=== PATIENT | male | born 1990 | race Caucasian/White ===

== ENCOUNTER 2018-10-18 13:46 | Emergency (ER) | payer BC ==
[~2018-10-18] VITALS: Ht 172.7 cm; Wt 95.5 kg
[2018-10-18 14:21] VITALS: Ht 172.7 cm; Wt 95.5 kg
[2018-10-18] MEDS ORDERED: CANNIBUS OIL (14:24)
[2018-10-18 14:41] LABS: BASOPHILS 0.2 % (0-2); EOSINOPHILS 6.4 % (0-7); HEMATOCRIT 41.3 % (42.0-54.0); HEMOGLOBIN 13.9 g/dL (13.5-17.5); IMMATURE GRANULOCYTES 0.2 % (0-5); MCH 29.9 pg (26.0-34.0); MCHC 33.7 g/dL (31.0-37.0); MCV 88.8 fL (80.0-100.0); MEAN PLATELET VOLUME 9.7 fL (7.4-10.4); MONOCYTES 8.6 % (2-11); NEUTROPHILS 64.6 % (40-80); PLATELET COUNT 251 10x3/uL (130-400); RBC 4.65 10x6/uL (4.20-6.10); RDW 13.2 % (11.5-14.5); WBC 6.4 10x3/uL (4.8-10.8)
[2018-10-18 15:00] LABS: ALKALINE PHOSPHATASE 69 U/L (46-116); ALT (SGPT) 19 U/L (10-68); BILIRUBIN - TOTAL 0.34 mg/dL (0.2-1.3); CALC OSMOLALITY 276 mosm/kg (275-300); CARBON DIOXIDE 29.2 mmol/L (21.0-32.0); CHLORIDE - SERUM 103 mmol/L (98-107); CREATININE - SERUM 0.8 mg/dL (0.6-1.3); GLUCOSE 89 mg/dL (74-106); POTASSIUM - SERUM 4.3 mmol/L (3.5-5.1); PROTEIN - SERUM 7.7 g/dL (6.4-8.2); SODIUM 140 mmol/L (136-145); UREA NITROGEN 11 mg/dL (7-18); eGFR NON AFRICAN AMERICAN > 90 mL/min (90-120)
[2018-10-18 15:04] LABS: AMYLASE - SERUM 48 U/L (25-115); LIPASE 134 U/L (73-393)
[2018-10-18 15:06] LABS: TROPONIN-I < 0.017 ng/mL (0.000-0.060)
[2018-10-18] MEDS ORDERED: VOLTAREN75 MG PO (17:09)
[2018-10-18 17:35] VITALS: BP 131/82
== END 2018-10-18 17:37 | disposition home or self-care (01) ==
LOC: D.ER 13:46
PROVIDERS: Emergency Medicine
DX: G89.29 Other chronic pain (principal)